=== PATIENT | male | born 1955 | race Caucasian/White ===

== ENCOUNTER 2017-11-16 15:23 | Outpatient (CLI) | payer MEDICAID, SELFPAY ==
--- NOTE | 2017-11-16 16:08 | DI.US_ITS ---
SYMPTOM/DIAGNOSIS: RT LEG SWELLING, M79.89 RIGHT LOWER EXTREMITY ULTRASOUND: The deep veins of the right lower extremity were evaluated sonographically. There is non compressible thrombus seen in the right common femoral vein. The right femoral, popliteal, posterior tibialis veins show normal compression and augmentation. Normal color flow is identified in these veins. The visualized portion of the greater saphenous vein is patent with normal compression and color flow. Note is made of multiple enlarged lymph nodes in the right groin, the largest measuring 5.4 cm. It is homogeneously hypoechoic with internal blood flow. There is no evidence of a Walker's cyst. IMPRESSION: 1. Non compressible thrombus visualized in the right common femoral vein. 2. Multiple enlarged right inguinal lymph nodes, the largest measuring 5.4 cm.
--- NOTE | 2017-11-16 16:29 | DI.VRAD_ITS ---
EXAM: US Duplex Right Lower Extremity Veins CLINICAL HISTORY: 62 years old, male; Signs and symptoms; Other: Right leg swelling TECHNIQUE: Real-time duplex ultrasound scan of the right lower extremity veins integrating B-mode two-dimensional vascular structure, Doppler spectral analysis, color flow Doppler imaging and compression. COMPARISON: No relevant prior studies available. FINDINGS: There is noncompressible thrombus within the right common femoral vein. The right femoral, popliteal, posterior tibial, and greater saphenous veins demonstrate normal color flow, and are normally compressible, with normal phasic flow and/or augmentation response. Multiple enlarged lymph nodes within the right groin, largest measuring up to 5.4 cm. Walker cyst is present in the right popliteal fossa. IMPRESSION: 1. Noncompressible thrombus within the right common femoral vein. 2. Multiple enlarged lymph nodes within the right groin, largest measuring up to 5.4 cm. THIS REPORT CONTAINS FINDINGS THAT MAY BE CRITICAL TO PATIENT CARE. The findings were verbally communicated via telephone conference with Rojas Rene at 4:28 PM EDT on 11/16/2017. The findings were acknowledged and understood. Dictated and Authenticated by: Marcos Marshall MD. Ordering:CHIRAG FONTAINE MD
== END 2017-11-16 15:43 ==
PROVIDERS: PCP Family Medicine; Visit Provider Internal Medicine
DX: R22.41 Localized swelling, mass and lump, right lower limb (principal); M79.89 Other specified soft tissue disorders; R59.0 Localized enlarged lymph nodes; I82.411 Acute embolism and thrombosis of right femoral vein
CPT/HCPCS: 93971